=== PATIENT | male | born 1980 | race Hispanic/Latino ===

== ENCOUNTER 2023-02-26 06:11 | Day surgery (SDC) | payer OTHER ==
[2023-02-22 11:40] LABS: BASOPHILS % (AUTO) 0.5 % (0.0-5.0); EOSINOPHILS % (AUTO) 1.6 % (0.0-8.0); HEMATOCRIT 51.3 % (42-54); MEAN CORPUSCULAR HGB CONC 31.8 g/dL (32.0-36.0); MEAN CORPUSCULAR VOLUME 81.9 fL (79-99); MONOCYTES % (AUTO) 9.2 % (3.0-13.0); NEUTROPHILS % (AUTO) 46.3 % (40.0-77.0); PLATELET COUNT (AUTO) 252 K/uL (130-400); RED BLOOD CELL COUNT(AUTO) 6.26 MIL/uL (4.50-6.20); RED CELL DISTRIBUTION WIDTH 14.9 % (11.0-15.5); WHITE BLOOD COUNT (AUTO) 8.5 K/uL (4.8-10.8)
[2023-02-22 11:49] VITALS: BP 123/72
[2023-02-22 11:50] LABS: CREATININE 1.2 mg/dL (0.5-1.5); POTASSIUM 4.9 mmol/L (3.5-5.1)
[~2023-02-26] VITALS: Ht 170.2 cm; Wt 136.3 kg
[2023-02-26] VITALS (17 sets, daily range): BP systolic 105–130; BP diastolic 53–82
[2023-02-26] MEDS ORDERED: LISI1TAB51 PO (06:35)
[2023-02-26] MEDS ORDERED: TIRZ7.5P SQ (06:35)
[2023-02-26] MEDS ORDERED: CEFAZOLIN SODIUM 2 GM VIAL ONE (06:39)
[2023-02-26] MEDS ORDERED: 0.9%NACL 1000ML 1,000 ML IV ONE (06:39)
[2023-02-26] MEDS ORDERED: PROPOFOL 10 MG/ML 20ML VIAL IV ONE (07:08)
[2023-02-26] MEDS ORDERED: MIDAZOLAM HCL 1 MG/ML 2ML VIAL ONE (07:08)
[2023-02-26] MEDS ORDERED: FENTANYL CITRATE PF 50 MCG/1 ML 2ML VIAL ONE (07:08)
[2023-02-26] MEDS ORDERED: DEXAMETHASONE SOD PHOSPHATE 10MG/ML 1ML VIAL ONE (07:08)
[2023-02-26] MEDS ORDERED: LIDOCAINE PF 100MG/5ML (2%) SYRINGE 5ML ONE ×2 (07:08→08:34)
[2023-02-26] MEDS ORDERED: ONDANSETRON 4MG INJ ONE (07:08)
[2023-02-26] MEDS ORDERED: ROCURONIUM 10MG/1ML SYR 10 MG/ML ML ONE (07:59)
[2023-02-26] MEDS ORDERED: KETOROLAC 30MG VIAL (30MG/ML) ONE (08:17)
[2023-02-26] MEDS ORDERED: MEPERIDINE-PF 25 MG/ML SYG ONE (08:29)
[2023-02-26] MEDS ORDERED: SUCCINYLCHOLINE CHLORIDE 20 MG/ML 10 ML VIAL ONE (08:29)
[2023-02-26] MEDS ORDERED: NEOSTIGMINE 5MG/5ML SYR IV ONE (08:33)
[2023-02-26] MEDS ORDERED: GLYCOPYRROLATE 1 MG/5 ML SYRINGE ONE (08:33)
[2023-02-26] MEDS ORDERED: MORPHINE 2 MG SYG ONE ×2 (09:02→09:11)
[2023-02-26] MEDS ORDERED: HYDR-4068 PO (10:08)
== END 2023-02-26 10:35 | disposition home or self-care (01) ==
LOC: DAH 06:11
PROVIDERS: ATTEND Orthopaedic Surgery
DX: S83.8X2A Sprain of other specified parts of left knee, initial encounter (principal); M22.42 Chondromalacia patellae, left knee; E66.9 Obesity, unspecified; F17.210 Nicotine dependence, cigarettes, uncomplicated; X58.XXXA Exposure to other specified factors, initial encounter; Y93.89 Activity, other specified; Y92.89 Other specified places as the place of occurrence of the external cause; Y99.8 Other external cause status; Z20.822 Contact with and (suspected) exposure to COVID-19; Z79.899 Other long term (current) drug therapy; Z72.89 Other problems related to lifestyle; Z68.42 Body mass index [BMI] 45.0-49.9, adult
CPT/HCPCS: 80048; 85025; 87426; 36415; 29855; 82948; 73564; A6260; A4663; A4606; J3010; J3490; J1100; J2710; J0330; J7030; J2001 ×2; J2250; J2704; J2405; J1885; J2175; J0690; A6223; A4649; C1713; A5120; A4215; A4223; A4222; A4221; A6450